=== PATIENT | female | born 1985 | race Caucasian/White ===

== ENCOUNTER 2022-11-03 18:31 | Emergency (ER) | payer OTHER, SELFPAY ==
--- NOTE | ~2022-11-03 | XR_ITS ---
EXAMINATION: XR CHEST CLINICAL INFORMATION: Shortness of breath COMPARISON: Chest x-ray on 04/02/2016 TECHNIQUE: 2 views of the chest were obtained. FINDINGS: No significant abnormality is noted involving the heart, lungs, mediastinum, bony thorax or soft tissues. XR/XR chest 2V IMPRESSION: Unremarkable examination.
[2022-11-03 18:59] VITALS: BP 144/93; PULSE 101; RESP 20; TEMP 37.7; O2SAT 99; BMI 26.4
--- NOTE | 2022-11-03 19:03 | ED.FEVER ---
HPI - Fever General Chief Complaint: Upper Respiratory Symptoms <NEW Luna - Last Filed: 11/03/22 19:05> Stated Complaint: flu like symptoms <NEW Luna Last Filed: 11/03/22 19:05> Time Seen by Provider: 11/03/22 19:43 <NEW Luna Last Filed: 11/03/22 19:05> Source: patient <NEW Dukes Last Filed: 11/03/22 22:12> Mode of arrival: ambulatory <NEW Dukes Last Filed: 11/03/22 22:12> Limitations: no limitations <NEW Dukes Last Filed: 11/03/22 22:12> History of Present Illness HPI Narrative: This is a 37-year-old female history of asthma presenting to the emergency department with complaints of dry cough, body aches, shortness of breath, subjective fevers and chills, nausea and vomiting x5 days. Patient tells me that the girls at home have similar symptoms. She tells me she took an at-home COVID test which was negative. She tells me she feels awful. Tells me she is worried because she has a history of asthma and she feels short of breath. Patient denies chest pain, abdominal pain, constipation, diarrhea, headache, vision changes in dizziness. <NEW Dukes Last Filed: 11/03/22 22:12> Related Data Home Medications: Previous Rx's Medication Instructions Recorded albuterol sulfate 2.5 mg/3 mL 2.5 mg (3 mL) inhalation Q6H #75 mL 11/03/22 (0.083 %) solution for nebulization albuterol sulfate 90 mcg/actuation 2 inh inhalation Q4-6H PRN 11/03/22 breath activated powder inhaler shortness of breath or wheezing #1 ea prednisone 20 mg tablet 40 mg PO DAILY 5 days #10 tabs 11/03/22 <NEW Luna Last Filed: 11/03/22 19:05> Allergies/Adverse Reactions: Allergies Allergy/AdvReac Type Severity Reaction Status Date / Time Penicillins Allergy Hives Verified 11/03/22 19:04 <NEW Luna - Last Filed: 11/03/22 19:05> Review of Systems Review of Systems: Constitutional : No Weight loss, + Fever, + Chills, + Fatigue, + Malaise ENT/Mouth : No sore throat, No Rhinorrhea Eyes: No Eye Pain, No Swelling, No Redness Cardiovascular : No Chest Pain, + SOB, No Dyspnea on Exertion, No Orthopnea, No Edema, No Palpitations Respiratory : + Cough, No Sputum, No Wheezing Gastrointestinal : No Nausea, No Vomiting, No Diarrhea, No Constipation, No abdominal Pain, No Hematochezia, No Melena Genitourinary : No Dysuria, No Urinary Frequency, No Hematuria, Musculoskeletal : No joint pain, + Myalgias, No Joint Swelling Skin : No Skin Lesions, No rash Neuro : No Weakness, No Numbness, No Dizziness, No Headache Psych : No Anxiety/Panic, No Depression All other systems reviewed and are negative <NEW Dukes - Last Filed: 11/03/22 22:12> Yes all other systems are reviewed and are negative <NEW Dukes - Last Filed: 11/03/22 22:12> PMFSH Past Medical History Attestation statement: The following information was validated with the patient. <NEW Dukes - Last Filed: 11/03/22 22:12> Source: old records reviewed and nursing notes reviewed <NEW Dukes - Last Filed: 11/03/22 22:12> Social History Social History: Social History Advance Directives: No Advance Directives Information Provided: No <NEW Luna - Last Filed: 11/03/22 19:05> Physical Exam Vital Signs: Vital Signs: Last Vital Signs Temp 99.9 F 11/03/22 18:59 Pulse 101 H 11/03/22 18:59 Resp 20 11/03/22 18:59 BP 144/93 H 11/03/22 18:59 Pulse Ox 99 11/03/22 18:59 O2 Del Method 11/03/22 18:59 BMI result Body Mass Index 26.4 <NEW Luna - Last Filed: 11/03/22 19:05> Vital Signs: Last Vital Signs Temp 99.9 F 11/03/22 18:59 Pulse 101 H 11/03/22 18:59 Resp 20 11/03/22 18:59 BP 144/93 H 11/03/22 18:59 Pulse Ox 99 11/03/22 18:59 O2 Del Method 11/03/22 18:59 BMI result Body Mass Index 26.4 Vital signs stable. Saturating 99% even after ambulation. <NEW Dukes - Last Filed: 11/03/22 22:12> Appearance: Alert.? Oriented X3.? No acute distress.? Head: Normocephalic, atraumatic, no step-offs or deformities Eyes: Pupils equal, round and reactive to light.? ENT: Pharynx normal.? Neck: Normal inspection.? Neck supple.? CVS: Normal heart rate and rhythm.? Pulses normal.? Respiratory: No respiratory distress.? Breath sounds with faint expiratory wheezing bilaterally.? Abdomen: Soft and nontender.? Skin: Skin warm and dry.? Normal skin color.? Normal skin turgor.? Extremities: No lower extremity edema.? No calf ttp. 5/5 strength to bilateral upper and lower extremities Neuro: Oriented X 3.? No motor deficit.? No sensory deficit. CN 2-12 intact <NEW Dukes - Last Filed: 11/03/22 22:12> Course Course Course Narrative: 19:03 - 37 yo female presents to the ER for evaluation of 8 days not feeling well. She has had fevers, cough, SOB, diffuse body aches, vomiting. Tested negative for COVID. Slow to ambulate into triage. VSS. Groaning in pain. <NEW Luna - Last Filed: 11/03/22 19:05> Reevaluation(s) Reevaluation #1: Patient being extremely rude to nursing staff, swearing at them, verbally her asking them. Adamantly refusing labs. Refusing further intervention and treatment. Patient has been spoken to by multiple nurses about getting these labs done and how important it is, she tells nursing and myself that she does not want them she does not care. Stating nobody has done anything for her. I tried to explain to her that because she complained of chest pain we ordered labs to ensure it is not her heart, she tells us it is not her heart and she needs to leave, demanding paperwork. <NEW Dukes - Last Filed: 11/03/22 22:12> Time: 21:06 <NEW Dukes - Last Filed: 11/03/22 22:12> Reevaluation #2: Charge nurse went to speak to patient she calmed down allowed labs. CBC wnl. Chemistry with no acute findings. Trop negative, ekg nonnischemic unlikley ACS. Symptoms likely secondary lens as patient did just test positive for influenza. Educated on supportive measures. Will discharge home with prednisone, albuterol, nebulizer. Not a candidate for Tamiflu as symptoms have been ongoing for 5 day. Educated patient on diagnosis and treatment plan, answered all question, patient verbalizes understanding. At this time patient will be discharged home, advised to return with new or worsening symptoms. Educated on worrisome signs and symptoms and when to return. At this time I feel comfortable discharge home. <NEW Dukes - Last Filed: 11/03/22 22:12> Time: 22:12 <NEW Dukes - Last Filed: 11/03/22 22:12> Medications Administered Discontinued Medications Generic Name Dose Route Start Last Admin Trade Name Freq PRN Reason Stop Dose Admin Acetaminophen 650 mg 11/03/22 20:52 11/03/22 20:56 Acetaminophen 325 Mg Tablet PO 11/03/22 20:53 650 mg ONCE ONE Administration Albuterol Sulfate 2 puff 11/03/22 20:48 11/03/22 20:56 Albuterol Sulfate 90 Mcg 8 Gm Inhaler INHALE 11/03/22 20:49 2 puff ONCE ONE Administration <NEW Luna - Last Filed: 11/03/22 19:05> Medications Administered Discontinued Medications Generic Name Dose Route Start Last Admin Trade Name Freq PRN Reason Stop Dose Admin Acetaminophen 650 mg 11/03/22 20:52 11/03/22 20:56 Acetaminophen 325 Mg Tablet PO 11/03/22 20:53 650 mg ONCE ONE Administration Albuterol Sulfate 2 puff 11/03/22 20:48 11/03/22 20:56 Albuterol Sulfate 90 Mcg 8 Gm Inhaler INHALE 11/03/22 20:49 2 puff ONCE ONE Administration <NEW Dukes - Last Filed: 11/03/22 22:12> Medical Decision Making Medical Decision Making [facility] Narrative: 1998 37-year-old female presents with flu-like symptoms x5 days. Endorses sick contacts. Physical examination with faint expiratory wheezing bilaterally. Likely viral infection, other differentials include asthma. Unlikely that this is pneumonia, PE, ACS. Will obtain basic labs, chest x-ray, viral panel, troponin. Will also give albuterol inhaler. <NEW Dukes - Last Filed: 11/03/22 22:12> Lab Data Result Diagrams: : 11/03/22 21:36 11/03/22 21:36 <NEW Luna - Last Filed: 11/03/22 19:05> Labs: Lab Results 11/03/22 11/03/22 11/03/22 Range/Units 19:07 21:36 21:36 WBC 7.7 (4.8-10.8) X10*3/uL RBC 4.05 L (4.20-5.50) X10*6/uL Hgb 13.2 (12.0-16.0) g/dl Hct 38.1 (37.0-47.0) % MCV 94.1 (80.0-98.0) fL MCH 32.6 (27.0-33.0) pg MCHC 34.6 (31.0-35.0) g/dl RDW 12.6 (11.0-16.0) % Plt Count 253 (160-400) X10*3/uL MPV 9.4 (9.4-12.3) fL Immature Gran % (Auto) 0.3 (0.0-0.4) % Neut % (Auto) 81.9 H (45-73) % Lymph % (Auto) 6.5 L (20-40) % [place] % (Auto) 10.2 (2-11) % Eos % (Auto) 0.7 (0-4) % Baso % (Auto) 0.4 (0-2) % Lymph # (Auto) 0.5 L (1.2-4.9) X10*3/uL [place] # (Auto) 0.8 (0.1-1.2) X10*3/uL Eos # (Auto) 0.1 (0.0-0.4) X10*3/uL Baso # (Auto) 0.0 (0.0-0.2) X10*3/uL Abs Immat Gran (auto) 0.02 (0.00-0.03) X10*3/uL Absolute Neuts (auto) 6.3 (2.0-8.3) x10*3/uL Absolute Nucleated RBC 0.000 (0.0-0.012) X10*3/uL Nucleated RBC % (auto) 0.0 (0.0-0.2) /100WBC Sodium 137 (135-145) mmol/L Potassium 3.4 (3.3-5.1) mmol/L Chloride 106 (96-108) mmol/L Carbon Dioxide 20 L (22-29) mmol/L Anion Gap 14 (12-20) BUN 6 L (9-16) mg/dL Creatinine 0.81 (0.5-1.4) mg/dL Estim Creat Clear Calc 82.7 Estimated GFR > 60 Random Glucose 91 (60-115) mg/dL Calcium 8.8 (8.4-10.2) mg/dL Total Bilirubin 0.4 (0.0-1.0) mg/dL AST 16 (5-31) U/L ALT 10 (0-31) U/L Alkaline Phosphatase 64 (39-117) U/L Troponin I High Sens (<3.5-17.0) ng/L Total Protein 6.5 (6.5-8.0) g/dL Albumin 4.1 (3.5-5.0) g/dL Influenza Type A (PCR) POSITIVE A (Negative) Influenza Type B (PCR) NEGATIVE (Negative) RSV RNA Qual (PCR) NEGATIVE (Negative) SARS-CoV-2 RNA (RT-PCR) NEGATIVE (Negative) 11/03/22 Range/Units 21:36 WBC (4.8-10.8) X10*3/uL RBC (4.20-5.50) X10*6/uL Hgb (12.0-16.0) g/dl Hct (37.0-47.0) % MCV (80.0-98.0) fL MCH (27.0-33.0) pg MCHC (31.0-35.0) g/dl RDW (11.0-16.0) % Plt Count (160-400) X10*3/uL MPV (9.4-12.3) fL Immature Gran % (Auto) (0.0-0.4) % Neut % (Auto) (45-73) % Lymph % (Auto) (20-40) % [place] % (Auto) (2-11) % Eos % (Auto) (0-4) % Baso % (Auto) (0-2) % Lymph # (Auto) (1.2-4.9) X10*3/uL [place] # (Auto) (0.1-1.2) X10*3/uL Eos # (Auto) (0.0-0.4) X10*3/uL Baso # (Auto) (0.0-0.2) X10*3/uL Abs Immat Gran (auto) (0.00-0.03) X10*3/uL Absolute Neuts (auto) (2.0-8.3) x10*3/uL Absolute Nucleated RBC (0.0-0.012) X10*3/uL Nucleated RBC % (auto) (0.0-0.2) /100WBC Sodium (135-145) mmol/L Potassium (3.3-5.1) mmol/L Chloride (96-108) mmol/L Carbon Dioxide (22-29) mmol/L Anion Gap (12-20) BUN (9-16) mg/dL Creatinine (0.5-1.4) mg/dL Estim Creat Clear Calc Estimated GFR Random Glucose (60-115) mg/dL Calcium (8.4-10.2) mg/dL Total Bilirubin (0.0-1.0) mg/dL AST (5-31) U/L ALT (0-31) U/L Alkaline Phosphatase (39-117) U/L Troponin I High Sens < 3.5 (<3.5-17.0) ng/L Total Protein (6.5-8.0) g/dL Albumin (3.5-5.0) g/dL Influenza Type A (PCR) (Negative) Influenza Type B (PCR) (Negative) RSV RNA Qual (PCR) (Negative) SARS-CoV-2 RNA (RT-PCR) (Negative) <NEW Luna - Last Filed: 11/03/22 19:05> Lab Results 11/03/22 11/03/22 11/03/22 Range/Units 19:07 21:36 21:36 WBC 7.7 (4.8-10.8) X10*3/uL RBC 4.05 L (4.20-5.50) X10*6/uL Hgb 13.2 (12.0-16.0) g/dl Hct 38.1 (37.0-47.0) % MCV 94.1 (80.0-98.0) fL MCH 32.6 (27.0-33.0) pg MCHC 34.6 (31.0-35.0) g/dl RDW 12.6 (11.0-16.0) % Plt Count 253 (160-400) X10*3/uL MPV 9.4 (9.4-12.3) fL Immature Gran % (Auto) 0.3 (0.0-0.4) % Neut % (Auto) 81.9 H (45-73) % Lymph % (Auto) 6.5 L (20-40) % [place] % (Auto) 10.2 (2-11) % Eos % (Auto) 0.7 (0-4) % Baso % (Auto) 0.4 (0-2) % Lymph # (Auto) 0.5 L (1.2-4.9) X10*3/uL [place] # (Auto) 0.8 (0.1-1.2) X10*3/uL Eos # (Auto) 0.1 (0.0-0.4) X10*3/uL Baso # (Auto) 0.0 (0.0-0.2) X10*3/uL Abs Immat Gran (auto) 0.02 (0.00-0.03) X10*3/uL Absolute Neuts (auto) 6.3 (2.0-8.3) x10*3/uL Absolute Nucleated RBC 0.000 (0.0-0.012) X10*3/uL Nucleated RBC % (auto) 0.0 (0.0-0.2) /100WBC Sodium 137 (135-145) mmol/L Potassium 3.4 (3.3-5.1) mmol/L Chloride 106 (96-108) mmol/L Carbon Dioxide 20 L (22-29) mmol/L Anion Gap 14 (12-20) BUN 6 L (9-16) mg/dL Creatinine 0.81 (0.5-1.4) mg/dL Estim Creat Clear Calc 82.7 Estimated GFR > 60 Random Glucose 91 (60-115) mg/dL Calcium 8.8 (8.4-10.2) mg/dL Total Bilirubin 0.4 (0.0-1.0) mg/dL AST 16 (5-31) U/L ALT 10 (0-31) U/L Alkaline Phosphatase 64 (39-117) U/L Troponin I High Sens (<3.5-17.0) ng/L Total Protein 6.5 (6.5-8.0) g/dL Albumin 4.1 (3.5-5.0) g/dL Influenza Type A (PCR) POSITIVE A (Negative) Influenza Type B (PCR) NEGATIVE (Negative) RSV RNA Qual (PCR) NEGATIVE (Negative) SARS-CoV-2 RNA (RT-PCR) NEGATIVE (Negative) 11/03/22 Range/Units 21:36 WBC (4.8-10.8) X10*3/uL RBC (4.20-5.50) X10*6/uL Hgb (12.0-16.0) g/dl Hct (37.0-47.0) % MCV (80.0-98.0) fL MCH (27.0-33.0) pg MCHC (31.0-35.0) g/dl RDW (11.0-16.0) % Plt Count (160-400) X10*3/uL MPV (9.4-12.3) fL Immature Gran % (Auto) (0.0-0.4) % Neut % (Auto) (45-73) % Lymph % (Auto) (20-40) % [place] % (Auto) (2-11) % Eos % (Auto) (0-4) % Baso % (Auto) (0-2) % Lymph # (Auto) (1.2-4.9) X10*3/uL [place] # (Auto) (0.1-1.2) X10*3/uL Eos # (Auto) (0.0-0.4) X10*3/uL Baso # (Auto) (0.0-0.2) X10*3/uL Abs Immat Gran (auto) (0.00-0.03) X10*3/uL Absolute Neuts (auto) (2.0-8.3) x10*3/uL Absolute Nucleated RBC (0.0-0.012) X10*3/uL Nucleated RBC % (auto) (0.0-0.2) /100WBC Sodium (135-145) mmol/L Potassium (3.3-5.1) mmol/L Chloride (96-108) mmol/L Carbon Dioxide (22-29) mmol/L Anion Gap (12-20) BUN (9-16) mg/dL Creatinine (0.5-1.4) mg/dL Estim Creat Clear Calc Estimated GFR Random Glucose (60-115) mg/dL Calcium (8.4-10.2) mg/dL Total Bilirubin (0.0-1.0) mg/dL AST (5-31) U/L ALT (0-31) U/L Alkaline Phosphatase (39-117) U/L Troponin I High Sens < 3.5 (<3.5-17.0) ng/L Total Protein (6.5-8.0) g/dL Albumin (3.5-5.0) g/dL Influenza Type A (PCR) (Negative) Influenza Type B (PCR) (Negative) RSV RNA Qual (PCR) (Negative) SARS-CoV-2 RNA (RT-PCR) (Negative) <NEW Dukes - Last Filed: 11/03/22 22:12> Critical Care Time Critical Care Time Critical Care Time: No <NEW Dukes - Last Filed: 11/03/22 22:12> Discharge Plan Discharge Clinical Impression: Viral infection, Influenza <NEW Luna - Last Filed: 11/03/22 19:05> Patient Disposition: Home, Self-Care <NEW Luna - Last Filed: 11/03/22 19:05> Instructions: Viral Syndrome (ED) <NEW Luna - Last Filed: 11/03/22 19:05> Additional Instructions: Take your medications as prescribed. If you were prescribed antibiotics today, it is important that you take your medication to their entirety, do not skip any doses, do not finish them early. Follow-up with your primary care provider this week. Return to the emergency department with new or worsening symptoms. Such as fevers, chills, chest pain, shortness of breath, nausea, vomiting, dizziness, headache, vision changes, lethargy In case of emergency call 911 You tested positive for the flu today. Please wash your hands drink plenty of fluids. You are contagious. Your symptoms have been going on for more than 48 hours therefore your not a candidate for Tamiflu. <NEW Luna - Last Filed: 11/03/22 19:05> Prescriptions: New albuterol sulfate 2.5 mg /3 mL (0.083 %) solution for nebulization 2.5 mg inhalation Q6H Qty: 75 0RF albuterol sulfate 90 mcg/actuation aerosol powdr breath activated 2 inh inhalation Q4-6H PRN (Reason: shortness of breath or wheezing) Qty: 1 0RF prednisone 20 mg tablet 40 mg PO DAILY 5 Days Qty: 10 0RF <NEW Luna - Last Filed: 11/03/22 19:05> Referrals: Physician,Unknown J [Primary Care Provider] - 2 days <NEW Luna - Last Filed: 11/03/22 19:05> Stand Alone Forms: Work/School Release <NEW Luna - Last Filed: 11/03/22 19:05>
--- NOTE | 2022-11-03 20:17 | ECG_ITS ---
Test Reason : SOB/CP Blood Pressure : / mmHG Vent. Rate : 089 BPM Atrial Rate : 089 BPM P-R Int : 156 ms QRS Dur : 072 ms QT Int : 350 ms P-R-T Axes : 059 041 052 degrees QTc Int : 425 ms Normal sinus rhythm Normal ECG No previous ECGs available Referred By: Marko Levin Electronically Signed By:JOSEPH PETERS MD
[2022-11-03 20:18] LABS: Influenza A PCR POSITIVE (Negative); Influenza B PCR NEGATIVE (Negative); Resp Syncy Virus RNA Qual PCR NEGATIVE (Negative); SARS COV2 PCR INHOUSE NEGATIVE (Negative)
[2022-11-03] MEDS: Acetaminophen 325 MG TABLET 650 MG PO (20:56)
[2022-11-03] MEDS: Albuterol Sulfate 90 MCG 8 GM INHALER 2 PUFF INHALE (20:56)
[2022-11-03 21:46] LABS: Basophils Percent Auto 0.4 % (0-2); Eosinophils Absolute Auto 0.1 X10*3/uL (0.0-0.4); Eosinophils Percent Auto 0.7 % (0-4); Hematocrit 38.1 % (37.0-47.0); Hemoglobin 13.2 g/dl (12.0-16.0); Imm Gran Abs Auto 0.02 X10*3/uL (0.00-0.03); Imm Gran Pct Auto 0.3 % (0.0-0.4); Lymphocytes Absolute Auto 0.5 X10*3/uL (1.2-4.9); Lymphocytes Percent Auto 6.5 % (20-40); MANUAL DIFF FLAG NO; Mean Corpuscular HGB Conc 34.6 g/dl (31.0-35.0); Mean Corpuscular Hemoglobin 32.6 pg (27.0-33.0); Mean Corpuscular Volume 94.1 fL (80.0-98.0); Mean Platelet Volume 9.4 fL (9.4-12.3); Monocytes Absolute Auto 0.8 X10*3/uL (0.1-1.2); Monocytes Percent Auto 10.2 % (2-11); Neutrophils Absolute Auto 6.3 x10*3/uL (2.0-8.3); Neutrophils Percent Auto 81.9 % (45-73); Platelet Count 253 X10*3/uL (160-400); Red Blood Count 4.05 X10*6/uL (4.20-5.50); Red Cell Distribution Width 12.6 % (11.0-16.0); White Blood Count 7.7 X10*3/uL (4.8-10.8)
[2022-11-03 22:03] LABS: Alanine Aminotransferase 10 U/L (0-31); Albumin Level 4.1 g/dL (3.5-5.0); Alkaline Phosphatase 64 U/L (39-117); Anion Gap 14 (12-20); Aspartate Amino Transferase 16 U/L (5-31); Bilirubin Total 0.4 mg/dL (0.0-1.0); Blood Urea Nitrogen 6 mg/dL (9-16); Calcium 8.8 mg/dL (8.4-10.2); Carbon Dioxide 20 mmol/L (22-29); Chloride 106 mmol/L (96-108); Creatinine Clr Calc Pharmacy 82.7; Estimated Glomerular Filt Rate > 60; Glucose Random 91 mg/dL (60-115); Potassium 3.4 mmol/L (3.3-5.1); Sodium 137 mmol/L (135-145); Total Protein 6.5 g/dL (6.5-8.0)
[2022-11-03 22:07] LABS: Troponin-I High Sensitivity < 3.5 ng/L (<3.5-17.0)
== END 2022-11-03 22:19 | disposition home or self-care (01) ==
PROVIDERS: Physician Assistant; Emergency Provider Emergency Medicine
DX: J10.1 Influenza due to other identified influenza virus with other respiratory manifestations (principal); B34.9 Viral infection, unspecified; R05.9 Cough, unspecified; M79.10 Myalgia, unspecified site; R06.02 Shortness of breath; R50.9 Fever, unspecified; Z20.822 Contact with and (suspected) exposure to COVID-19; Z79.899 Other long term (current) drug therapy
CPT/HCPCS: 0241U; 36415; 71046; 80053; 84484; 85025; 93005; 99283; 99284